=== PATIENT | female | born 1945 | race Caucasian/White ===

== ENCOUNTER 2019-01-02 06:21 | Outpatient (CLI) | payer MEDICARE ==
[~2019-01-02] VITALS: Ht 165.1 cm; Wt 72.1 kg
[2019-01-02] MEDS ORDERED: ASPI-586 PO (10:14)
[2019-01-02] MEDS ORDERED: HYDR12.56 PO (10:18)
[2019-01-02] MEDS ORDERED: ATOR20TA66 PO (10:18)
[2019-01-02] MEDS ORDERED: OXYB5TAB PO (10:18)
[2019-01-02] MEDS ORDERED: STEROID TOP (10:18)
[2019-01-02] MEDS ORDERED: CARV12.53 PO (10:18)
[2019-01-02] MEDS ORDERED: VENL75CA PO (10:18)
[2019-01-02] MEDS ORDERED: LEVO100T7 PO (10:18)
[2019-01-02] MEDS ORDERED: METF-399 PO (10:18)
[2019-01-02] MEDS ORDERED: MONT10TA24 PO (10:20)
[2019-01-02] MEDS ORDERED: LACT1CAP62 PO (10:24)
[2019-01-02] MEDS ORDERED: MAGN400T39 PO (10:24)
== END 2019-01-02 10:29 | disposition home or self-care (01) ==
LOC: PREOP 06:21
PROVIDERS: ATTEND Surgery
DX: Z01.818 Encounter for other preprocedural examination (principal)

== ENCOUNTER 2019-01-04 09:38 | Day surgery (SDC) | payer MEDICARE, OTHER ==
[~2019-01-04] VITALS: Ht 165.1 cm; Wt 72.1 kg
[~2019-01-04 09:38] MED LIST: ASPI-586 PO; ATOR20TA66 PO; CARV12.53 PO; HYDR12.56 PO; LACT1CAP62 PO; LEVO100T7 PO; MAGN400T39 PO; METF-399 PO; MONT10TA24 PO; OXYB5TAB PO; STEROID TOP; VENL75CA PO
[2019-01-04] MEDS ORDERED: NS IV 500 ML 500 ML IV PRN (09:54)
--- OUTSIDE RECORDS SUMMARY | 2019-01-04 09:57 | XMS REPORT ---
Author Jacoby Arriola [facility] eClinicalWorks Address Unknown Phone Unavailable Care Team Providers Care Addiction Specialist Name Role Phone Jacoby Chacon CP Unavailable Allergies, Adverse Reactions, Alerts Substance Reaction Event Type Sulfa unknown Non Drug Allergy Problems Problem Type Condition Code Onset Dates Condition Status Assessment Metabolic Syndrome 277.9 Active Assessment Chronic fatigue syndrome 780.71 Active Assessment Dyslipidemia 272.9 Active Problem Dyslipidemia 272.9 Active Problem Metabolic Syndrome 277.9 Active Problem Chronic fatigue syndrome 780.71 Active Problem Loss of height 781.91 Active Problem Palpitations 785.1 Active Problem Hypothyroidism (acquired) 244.9 Active Problem 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 Assessment Palpitations 785.1 Active Assessment Loss of height 781.91 Active Assessment HRT female V07.4 Active Assessment Pain - Joint; unspecified 719.40 Active Assessment Menopausal and postmenopausal disorder, unspecified 627.9 Active Assessment Hypothyroidism (acquired) 244.9 Active Medications Medication Code System Code Instructions Start Date End Date Status Dosage Aspirin Low Strength NDC 7555 81 mg orally once a day 1 tab(s) Vitamin C with Effie Hips NDC 8315 500 mg orally once a day 1 cap(s ) LEVATHROID NDC 0 0.1mg orally qd 1 Centrum Silver NDC 8497 Therapeutic Multiple Vitamins with Minerals orally once a day 1 tab(s) [place] Thyroid NDC 234 60 mg orally once a day 1/2 tab furosemide NDC 95198 20 mg orally 3 days a week May 18, 2007 1 tab(s ) calcium-vitamin D NDC 34094 250 mg-125 units orally TID 1 tab(s) Vivelle-Dot NDC 94649 0.1 mg/24 hours twice weekly applied topically 2X/W 1 PATCH Lipitor NDC 6419 20 mg orally once a day 1 tab(s) metformin NDC 02688 500 mg orally once daily 1 tab(s) Toprol-XL NDC 1187 100 mg orally once a day 1 tab(s) Gentex LA NDC 51610 650 mg-23.75 mg orally Q12H PRN 1 tab(s) Magnesium NDC 0 400mg oral qd cap Sleep Essentials NDC 0 orally qd 1 Effexor XR NDC 12848 75 mg orally once a day 1 cap(s) vitamin E NDC 80523 1000 intl units orally once a day 1 cap(s) ibuprofen NDC 57714 200 mg orally qd Prn up to 6 vitamin B complex w/c NDC 0 1600 1 qd as directed Procedures Procedure Coding System Code Date ANTIB; PRUDENCE-CHRISTOPHER NUCLEAR AProc. CPT-4 91419 April 25, 2008 ANTIB; PRUDENCE-CHRISTOPHER VIRAL CAPProc. CPT-4 68599 April 25, 2008 ANTIB; PRUDENCE-CHRISTOPHER EARLY ANTProc. CPT-4 67007 April 25, 2008 TRIGLYCERIDES Proc. CPT-4 80089 April 25, 2008 EKG CPT-4 53996 April 25, 2008 CYTOMEG, DNA, QUANT CPT-4 90964 April 25, 2008 Vitamin D-3 25 [place] CPT-4 95745 April 25, 2008 DEHYDROEPIANDROETERONE Proc. CPT-4 23070 April 25, 2008 ESTROGENS TOTAL Proc. CPT-4 00602 April 25, 2008 DEXA BONE DENSITY, AXIAL CPT-4 36992 April 25, 2008 ASSAY PF ESTRADIOL Proc. CPT-4 48685 April 25, 2008 PROGESTRONE ASSAY Proc. CPT-4 64548 April 25, 2008 LIPOPROTEIN BLD, HR FRACTION CPT-4 70346 April 25, 2008 GENERAL HEALTH PANEL Proc. CPT-4 83297 April 25, 2008 TRIIODOTHYRONINE T3; FREE Proc. CPT-4 34047 April 25, 2008 OFC/OUTPT E&M ESTAB MOD-HI 25Proc. CPT-4 91446 April 25, 2008 THYROXINE; FREE Proc. CPT-4 06474 April 25, 2008 venipuncture VENOUS BLD VENIPProc. CPT-4 00012 April 25, 2008 Vital Signs Date/Time: April 25, 2008 Temperature 96.8 F Weight 172.2 lbs Height 62 in Respiratory Rate 16 /min Pulse 80 /min Blood Pressure Diastolic 72 mm Hg Blood Pressure Systolic 122 mm Hg BMI 31.49 Index Results No Known Results Summary Purpose eClinicalWorks Submission
--- OUTSIDE RECORDS SUMMARY | 2019-01-04 09:57 | XMS REPORT ---
Author Jacoby Arriola [facility] eClinicalWorks Address Unknown Phone Unavailable Care Team Providers Care Power System Dispatcher Name Role Phone Jacoby Chacon CP Unavailable Allergies, Adverse Reactions, Alerts Substance Reaction Event Type Sulfa unknown Non Drug Allergy Problems Problem Type Condition Code Onset Dates Condition Status Assessment Skin Lesion (unspecified) 709.9 Active Assessment Hyperkeratosis 701.1 Active Problem Dyslipidemia 272.9 Active Problem Metabolic Syndrome 277.9 Active Problem Chronic fatigue syndrome 780.71 Active Problem Loss of height 781.91 Active Problem Palpitations 785.1 Active Problem Hypothyroidism (acquired) 244.9 Active Problem 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 Medications Medication Code System Code Instructions Start Date End Date Status Dosage [place] / NDC 0 Fish 800/Flax 800 Barbra.PrimroseBlk Current Borage Oil/ 400mg orally Q AM 1 cap LEVATHROID NDC 0 0.088 mg orally qd 1 Magnesium NDC 0 400mg oral qd cap Toprol-XL NDC 1187 100 mg orally once a day 1 tab(s) L-Tyrosine NDC 0 500 mg orally Q AM 1 Vitamin C with Effie Hips NDC 8315 500 mg orally once a day 1 cap(s ) Vivelle-Dot NDC 82334 0.1 mg/24 hours twice weekly applied topically 2X/W April 22, 2009 1 PATCH potassium NDC 0 90mg orally qd 2 furosemide NDC 55883 20 mg orally 3 days a week May 18, 2007 1 tab(s ) vitamin B complex w/c NDC 0 1600 1 qd as directed Centrum Silver NDC 8497 Therapeutic Multiple Vitamins with Minerals orally once a day 1 tab(s) vitamin E NDC 14144 1000 intl units orally once a day 1 cap(s) Aspirin Low Strength NDC 7555 81 mg orally once a day 1 tab(s) Lipitor NDC 6419 20 mg orally once a day 1 tab(s) metformin NDC 99401 500 mg orally once daily 1 tab(s) ibuprofen NDC 43896 200 mg orally qd Prn up to 6 Sleep Essentials NDC 0 orally qd 1 Effexor XR NDC 29772 75 mg orally once a day 1 cap(s) [place] Thyroid NDC 234 60 mg orally once a day 1/2 tab calcium-vitamin D NDC 48475 250 mg-125 units orally TID 1 tab(s) Procedures Procedure Coding System Code Date SHAVE F,E,E,N,L,M <0.5 CM CPT-4 68588 Aug 11, 2010 SHAV 1 LES TRNK ARM/LEG;0.5 CProc. CPT-4 82810 Aug 11, 2010 Vital Signs Date/Time: Aug 11, 2010 Temperature 96.8 F Weight 181 lbs Height 64 1/2 in Respiratory Rate 14 /min Pulse 80 /min Blood Pressure Diastolic 70 mm Hg Blood Pressure Systolic 108 mm Hg BMI 30.59 Index Results No Known Results Summary Purpose eClinicalWorks Submission
--- OUTSIDE RECORDS SUMMARY | 2019-01-04 09:57 | XMS REPORT ---
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 Problem Menopausal and postmenopausal disorder, unspecified 627.9 Active Problem Dyslipidemia 272.9 Active Problem Metabolic Syndrome 277.9 Active Problem Actinic keratosis 702.0 Active Problem Chronic fatigue syndrome 780.71 Active Assessment Zostavax vaccination (shingles) V05.8 Active Assessment Skin Lesion (unspecified) 709.9 Active Assessment Keratosis Seborrheic inflammed 702.11 Active Problem Palpitations 785.1 Active Medications Medication Code System Code Instructions Start Date End Date Status Dosage Aspirin Low Strength NDC 7555 81 mg orally once a day 1 tab(s) Toprol-XL NDC 1187 100 mg orally once a day February 08, 2012 1 tab(s) Vivelle-Dot NDC 06479 0.1 mg/24 hours twice weekly applied topically 2X/W April 22, 2009 1 PATCH Co-Q10 NDC 74505 200 mg orally once a day 200 mg [place] Thyroid NDC 234 60 mg orally once a day February 08, 2012 1 tab( s) vitamin E NDC 49779 1000 intl units orally once a day 1 cap(s) Centrum NDC 8493 Therapeutic Multiple Vitamins with Minerals orally once a day 1 tab(s) Magnesium NDC 0 400mg oral qd cap Lipitor NDC 6419 20 mg orally once a day 1 tab(s) Synthroid NDC 2205 88 mcg (0.088 mg) orally once a day 1 tab(s) furosemide NDC 53624 20 mg orally 3 days a week February 08, 2012 1 tab (s) Vitamin C with Effie Hips NDC 8315 1000 mg orally once a day 1 cap( s) oxybutynin NDC 24684 10 mg orally once a day Sep 01, 2011 1 tab(s) vitamin B complex w/c NDC 0 2000 IU 1 qd as directed Detrol LA NDC 58688 4 mg orally once a day 1 cap(s) Zostavax NDC 0 0.65 ml SC X 1 Aug 08, 2012 0.65 ml metformin NDC 15853 1000 mg orally once daily February 08, 2012 1 tab(s ) ibuprofen NDC 93118 200 mg orally qd Prn up to 6 Effexor XR NDC 39739 75 mg orally once a day 1 cap(s) Vitamin D3 NDC 4871 1000 intl units orally once a day 1 tab(s) Vitamin A NDC 0 8000 IU oral once a day 1 tab calcium-vitamin D NDC 52407 250 mg-125 units orally TID 1 tab(s) Procedures Procedure Coding System Code Date Dest of wart/benign lesion up to 14 CPT-4 81825 Aug 08, 2012 Vital Signs Date/Time: Aug 08, 2012 Temperature 96.0 F Weight 182.8 lbs Height 64 1/2 in Respiratory Rate 16 /min Pulse 72 /min Blood Pressure Diastolic 82 mm Hg Blood Pressure Systolic 126 mm Hg BMI 30.89 Index Results No Known Results Summary Purpose eClinicalWorks Submission
--- OUTSIDE RECORDS SUMMARY | 2019-01-04 09:58 | XMS REPORT ---
Author Jodi Fowler [facility] eClinicalWorks Address Unknown Phone Unavailable Care Team Providers Care Lithographic Retoucher Apprentice Name Role Phone Jodi Burgos Unavailable Allergies No Known Allergies Problems Problem Type Condition Code Onset Dates Condition Status Assessment FLU VACCINATION V04.81 Active Medications Medication Code System Code Instructions Start Date End Date Status Dosage Toprol XL NDC 1187 50 mg orally once a day 1 tab(s) Zaroxolyn NDC 1440 2.5 mg orally once a day 1 tab(s) Effexor XR NDC 61225 150 mg orally once a day 1 cap(s) Levothroid NDC 1840 500 mcg (0.5 mg) intravenously once a day 0.1 mg Vivelle-Dot NDC 19306 0.1 mg/24 hours twice weekly applied topically 2X/W 1 PATCH Lipitor NDC 6419 20 mg orally once a day 1 tab(s) Guaifenex LA NDC 2481 600 mg orally Q12H 1 tab(s) Procedures Procedure Coding System Code Date [facility] Adult CPT-4 66673 Sep 16, 2006 IMMUNIZATION ADMIN; 1 VACCINEProc. CPT-4 32595 Sep 16, 2006 Vital Signs Date/Time: Sep 16, 2006 Temperature 97.2 F Weight 166 lbs Height 62 in BMI 30.36 Index Respiratory Rate 14 /min Results No Known Results Immunizations Vaccine Administration Date [facility] Adult Sep 16, 2006 Summary Purpose eClinicalWorks Submission
--- OUTSIDE RECORDS SUMMARY | 2019-01-04 09:58 | XMS REPORT ---
Author Jodi Fowler [facility] eClinicalWorks Address Unknown Phone Unavailable Care Team Providers Care Lawyers Name Role Phone Jodi Burgos CP Unavailable Allergies, Adverse Reactions, Alerts Substance Reaction Event Type Sulfa unknown Non Drug Allergy Problems Problem Type Condition Code Onset Dates Condition Status Assessment NADINE (Seasonal Allergic Rhinitis) 477.8 Active Problem Loss of height 781.91 Active Problem Palpitations 785.1 Active Assessment Sinusitis 473.9 Active Problem Actinic keratosis 702.0 Active Problem Chronic fatigue syndrome 780.71 Active 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 Problem Hypothyroidism (acquired) 244.9 Active Problem 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 Problem Dyslipidemia 272.9 Active Problem Metabolic Syndrome 277.9 Active Medications Medication Code System Code Instructions Start Date End Date Status Dosage Vivelle-Dot [place]DC 21767 0.1 mg/24 hours twice weekly applied topically 2X/W April 22, 2009 1 PATCH furosemide NDC 68379 20 mg orally 3 days a week May 18, 2007 1 tab(s ) Toprol XL NDC 1187 100 mg orally once a day 1 tab(s) [place] Thyroid NDC 234 60 mg orally once a day 1/2 tab Vitamin C with Effie Hips NDC 8315 1000 mg orally once a day 1 cap( s) Synthroid NDC 2205 88 mcg (0.088 mg) orally once a day 1 tab(s) vitamin B complex w/c NDC 0 2000 IU 1 qd as directed Lipitor NDC 6419 20 mg orally once a day 1 tab(s) Levaquin NDC 6466 500 mg orally every 24 hours Jul 09, 2011 1 tab(s ) Detrol LA NDC 41212 4 mg orally once a day 1 cap(s) vitamin E NDC 81734 1000 intl units orally once a day 1 cap(s) Vitamin A NDC 0 8000 IU oral once a day 1 tab Co-Q10 NDC 46320 200 mg orally once a day 200 mg [place] 3/6/9/ NDC 0 Fish 800/Flax 800 Barbra.PrimroseBlk Current Borage Oil/ 400mg orally Q AM 1 cap Centrum NDC 8493 Therapeutic Multiple Vitamins with Minerals orally once a day 1 tab(s) Effexor XR NDC 83273 75 mg orally once a day 1 cap(s) metformin NDC 79437 500 mg orally once daily 1 tab(s) calcium and vitamin D combination NDC 07431 250 mg-125 units orally TID 1 tab(s) Vitamin D3 NDC 4871 2000 intl units orally once a day 1 tab(s) Aspirin Low Strength NDC 7555 81 mg orally once a day 1 tab(s) Magnesium NDC 0 400mg oral qd cap ibuprofen NDC 26490 200 mg orally qd Prn up to 6 Procedures Procedure Coding System Code Date Depo Medrol 40mg CPT-4 J1030 Jul 09, 2011 Dexamethasone 4mg/ml CPT-4 J1094 Jul 09, 2011 OFC/OUTPT E&M ESTAB LOW-MOD 1Proc. CPT-4 58731 Jul 09, 2011 Vital Signs Date/Time: Jul 09, 2011 Blood Pressure Systolic 120 mm Hg Temperature 97.6 F Weight 182 lbs Respiratory Rate 14 /min Pulse 62 /min Blood Pressure Diastolic 76 mm Hg Results No Known Results Summary Purpose eClinicalWorks Submission
--- OUTSIDE RECORDS SUMMARY | 2019-01-04 09:58 | XMS REPORT ---
Author Jacoby Arriola [facility] eClinicalWorks Address Unknown Phone Unavailable Care Team Providers Care Light Out Examiner Name Role Phone Jacoby Chacon CP Unavailable Allergies, Adverse Reactions, Alerts Substance Reaction Event Type Sulfa unknown Non Drug Allergy Problems Problem Type Condition Code Onset Dates Condition Status Assessment Tinnitus NOS 388.30 Active Assessment Metatarsalgia 726.70 Active Assessment Palpitations 785.1 Active Problem Dyslipidemia 272.9 Active Problem Metabolic Syndrome 277.9 Active Problem Chronic fatigue syndrome 780.71 Active Problem Loss of height 781.91 Active Problem Palpitations 785.1 Active Problem Hypothyroidism (acquired) 244.9 Active Problem 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 Medications Medication Code System Code Instructions Start Date End Date Status Dosage Toprol-XL NDC 1187 100 mg orally once a day 1 tab(s) metformin NDC 72251 500 mg orally once daily 1 tab(s) Effexor XR NDC 34986 75 mg orally once a day 1 cap(s) [place] Thyroid NDC 234 60 mg orally once a day 1/2 tab Sleep Essentials NDC 0 orally qd 1 vitamin E NDC 90991 1000 intl units orally once a day 1 cap(s) LEVATHROID NDC 0 0.088 mg orally qd 1 vitamin B complex w/c NDC 0 1600 1 qd as directed Aspirin Low Strength NDC 7555 81 mg orally once a day 1 tab(s) L-Tyrosine NDC 0 500 mg orally Q AM 1 potassium NDC 0 90mg orally qd 2 Vitamin C with Effie Hips NDC 8315 500 mg orally once a day 1 cap(s ) Centrum Silver NDC 8497 Therapeutic Multiple Vitamins with Minerals orally once a day 1 tab(s) Lipitor NDC 6419 20 mg orally once a day 1 tab(s) Vivelle-Dot NDC 08020 0.1 mg/24 hours twice weekly applied topically 2X/W April 22, 2009 1 PATCH calcium-vitamin D NDC 40443 250 mg-125 units orally TID 1 tab(s) [place] 3/6/9/ NDC 0 Fish 800/Flax 800 Barbra.PrimroseBlk Current Borage Oil/ 400mg orally Q AM 1 cap furosemide NDC 90903 20 mg orally 3 days a week May 18, 2007 1 tab(s ) Magnesium NDC 0 400mg oral qd cap ibuprofen NDC 84713 200 mg orally qd Prn up to 6 Procedures Procedure Coding System Code Date RAD EX FOOT; CMPL MINI 3 VIEWProc. CPT-4 95379 January 02, 2010 OFC/OUTPT E&M ESTAB LOW-MOD 1Proc. CPT-4 15057 January 02, 2010 Vital Signs Date/Time: January 02, 2010 Temperature 96.5 F Weight 184.6 lbs Height 62 in Respiratory Rate 14 /min Pulse 76 /min Blood Pressure Diastolic 72 mm Hg Blood Pressure Systolic 108 mm Hg BMI 33.76 Index Results No Known Results Summary Purpose eClinicalWorks Submission
--- OUTSIDE RECORDS SUMMARY | 2019-01-04 09:58 | XMS REPORT ---
Author Jacoby Arriola [facility] eClinicalWorks Address Unknown Phone Unavailable Care Team Providers Care General Cargo Clerk Name Role Phone Jacoby Chacon CP Unavailable Allergies, Adverse Reactions, Alerts Substance Reaction Event Type Sulfa unknown Non Drug Allergy Problems Problem Type Condition Code Onset Dates Condition Status Assessment Skin tag(s) 701.9 Active Assessment Skin Lesion (unspecified) 709.9 Active Assessment Seborrheic keratosis inflammed 702.11 Active Problem Dyslipidemia 272.9 Active Problem Metabolic Syndrome 277.9 Active Problem Chronic fatigue syndrome 780.71 Active Problem Loss of height 781.91 Active Problem Palpitations 785.1 Active Problem Hypothyroidism (acquired) 244.9 Active Problem 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 Medications Medication Code System Code Instructions Start Date End Date Status Dosage Centrum Silver NDC 8497 Therapeutic Multiple Vitamins with Minerals orally once a day 1 tab(s) fish oil NDC 0 1000mg orally qd 1 Flax Seed Oil NDC 0 1300 mg orally qd 1 metformin NDC 88354 500 mg orally once daily 1 tab(s) Lipitor NDC 6419 20 mg orally once a day 1 tab(s) Vitamin C with Effie Hips NDC 8315 500 mg orally once a day 1 cap(s ) [place] Thyroid NDC 234 60 mg orally once a day 1/2 tab [place] NDC 0 410 mg Orally QD 1 ibuprofen NDC 45818 200 mg orally qd Prn up to 6 Vivelle-Dot NDC 67994 0.1 mg/24 hours twice weekly applied topically 2X/W 1 PATCH Aspirin Low Strength NDC 7555 81 mg orally once a day 1 tab(s) vitamin E NDC 52041 1000 intl units orally once a day 1 cap(s) Gentex LA NDC 59593 650 mg-23.75 mg orally Q12H PRN 1 tab(s) Magnesium NDC 0 400mg oral qd cap Sleep Essentials NDC 0 orally qd 1 vitamin B complex w/c NDC 0 1600 1 qd as directed furosemide NDC 49634 20 mg orally 3 days a week May 18, 2007 1 tab(s ) calcium-vitamin D NDC 34991 250 mg-125 units orally TID 1 tab(s) Toprol-XL NDC 1187 100 mg orally once a day 1 tab(s) Effexor XR NDC 16484 75 mg orally once a day 1 cap(s) LEVATHROID NDC 0 0.1mg orally qd 1 Procedures Procedure Coding System Code Date Dest of wart/benign lesion up to 14 CPT-4 42360 Jun 29, 2008 Vital Signs Date/Time: Jun 29, 2008 Temperature 97.4 F Weight 179.4 lbs Height 62 in Respiratory Rate 16 /min Pulse 78 /min Blood Pressure Diastolic 74 mm Hg Blood Pressure Systolic 126 mm Hg BMI 32.81 Index Results No Known Results Summary Purpose eClinicalWorks Submission
[2019-01-04] MEDS ORDERED: LIDOCAINE JELLY 2% 6 ML SYRINGE MM PRN (10:00)
[2019-01-04] MEDS ORDERED: MIDAZOLAM 2 MG/2 ML (VERSED) VIAL IVP ONE (10:00)
[2019-01-04] MEDS ORDERED: fentaNYL INJECTION 100 MCG/2 ML AMP IVP ONE (10:00)
[2019-01-04] MEDS ORDERED: NS IV 500 ML 500 ML ONE (10:01)
[2019-01-04 10:26] VITALS: BP 124/69
--- NOTE | 2019-01-04 10:36 | Conscious Sedation/ASA ---
Conscious Sedation Pre-Proced Time 10:30 ASA Score 2 For ASA 3 and 4: Consider anesthesia and medical clearance. Also, for patients with a history of failed moderate sedation consider anesthesia. Airway Lungs Heart ASA score ASA 1: a normal healthy patient ASA 2: a patient with a mild systemic disease (mid diabetes, controlled hypertension, obesity ASA 3: a patient with a severe systemic disease that limits activity (angina , COPD, prior Myocardial infarction) ASA 4: a patient with an incapacitating disease that is a constant threat to life (CHF, renal failure) ASA 5: a moribund patient not expected to survive 24 hrs. (ruptured aneurysm) ASA 6: a declared brain- patient whose organs are being harvested. For emergent operations, add the letter E after the classification Mallampati Classification Grade 2 Sedation Plan Analgesia, Amnesia, Plan communicated to team members, Discussed options with patient/fam, Discussed risks with patient/fam The patient is an appropriate candidate to undergo the planned procedure, sedation, and anesthesia. The patient immediately re-assessed prior to indication. GERTRUDE TUCKER MD Jan 04, 2019 10:36
--- NOTE | 2019-01-04 10:37 | Progress Note-Pre Operative ---
Pre-Operative Progress Note H&P Reviewed The H&P was reviewed, patient examined and no changes noted. Date Seen by Provider: Jan 04, 2019 Time Seen by Provider: 10: Date H&P Reviewed: Jan 04, 2019 Time H&P Reviewed: 10:30 Pre-Operative Diagnosis: screening colonoscopy GERTRUDE TUCKER MD Jan 04, 2019 10:37
--- NOTE | 2019-01-04 10:39 | Discharge Inst-Surgical ---
D/C Lap Instructions-GARRETT Follow Up Activity as tolerated High Fiber Diet 25g or more per day Avoid Alcohol, Caffeine, Spicy [place] and Acid foods. Drink 64 fluid oz or more of fluids per day. Symptoms to Report: Fever over 101 degree F, Nausea/Vomiting If any problems/questions: Contact your physician or go to Emergency Room GERTRUDE TUKCER MD Jan 04, 2019 10:38
[2019-01-04] MEDS ORDERED: morphine INJ 10 MG/ML 1ML (SYR OR VIAL) IV PRN (10:45)
[2019-01-04] MEDS ORDERED: HYDROcodone/APAP 5 MG/325 MG (LORTAB) TAB PO PRN (10:45)
[2019-01-04] MEDS ORDERED: ONDANSETRON 4 MG/2 ML (SDV) Z0FRAN IV PRN (10:45)
[2019-01-04] MEDS ORDERED: ACETAMINOPHEN 325 MG TABLET PO PRN (10:45)
[2019-01-04] MEDS ORDERED: fentaNYL INJECTION 100 MCG/2 ML AMP ONE (10:47)
[2019-01-04] MEDS ORDERED: MIDAZOLAM 2 MG/2 ML (VERSED) VIAL ONE ×3 (10:47)
[2019-01-04] MEDS ORDERED: LIDOCAINE JELLY 2% 6 ML SYRINGE ONE (10:47)
[2019-01-04 12:10] VITALS: BP 130/63
--- NOTE | 2019-01-04 12:21 | OPERATIVE REPORT ---
DATE OF SERVICE: 01/04/2019 ATTENDING PRIMARY CARE PHYSICIAN: Dr. Sosa. PREOPERATIVE DIAGNOSIS: Screening colonoscopy. POSTOPERATIVE DIAGNOSIS: Mild stage I chronic external and internal hemorrhoids. Remainder of the colon and rectum were normal. PROCEDURE: Colonoscopy. SURGEON: Gertrude Tucker MD ANESTHESIA: Conscious sedation. ESTIMATED BLOOD LOSS: Minimal. FINDINGS: Mild chronic stage I external and internal hemorrhoids. The remainder of the rectum and colon were normal. There were no polyps or any neoplasms identified. DISPOSITION: The patient tolerated the procedure well. The patient is a 73-year-old female in need of a screening colonoscopy. Her last colonoscopy in 2005 and reports this to be normal. She states that she has had some constipation in the past; however, does take magnesium daily as well as a probiotic and states that this has helped and she does have a relatively soft bowel movement on a daily basis. She does not report any red blood per rectum nor any dark tarry stools. She also does not report any family history of first degree relative with a history of colon cancer. Her mother was diagnosed with ovarian cancer. The patient was brought to the endoscopy suite, laid in left lateral decubitus position. After adequate IV pain and sedative medications and conscious sedation anesthesia, a digital rectal examination was performed. Mild chronic stage I external and internal hemorrhoids were identified, which were not actively edematous nor inflamed and no bleeding. Normal sphincter tone was felt and there are no palpable masses. The endoscope was then intubated to the anus and rectum gently insufflated. The endoscope was then advanced to the valves of Lewis and rectum with no polyps or any neoplasms identified. The endoscope was then advanced through the sigmoid colon where there were no diverticulosis. The endoscope was then advanced to the remainder of the descending, transverse and ascending colon to the cecum. These segments were normal. There were no polyps or any neoplasms identified throughout the colon or rectum. The endoscope was slowly withdrawn while taking a second look and suctioning residual air with no additional findings. ASSESSMENT AND PLAN: The patient tolerated the procedure well. We will recommend continued medical management with incorporation of high fiber with at least 25 to 30 grams of fiber per day as well as significant amounts of water on a daily basis to promote soft bowel movement on a daily basis. She may wait another 10 years for her next colonoscopy, however, sooner if she becomes symptomatic. Job ID: [id number] DocumentID: [id number] Dictated Date: 01/04/2019 11:54:49 Retail Event Assistant Date: 01/04/2019 12:20:36 Dictated By: GERTRUDE TUCKER MD
[2019-01-04 12:30] VITALS: BP 140/73
[2019-01-04 13:00] VITALS: BP 140/73
--- NOTE | 2019-01-04 14:09 | Progress Note-Post Operative ---
Post-Operative Progess Note Surgeon (s)/Divine Healer (s) Surgeon GERTRUDE TUCKER MD Divine Healer: none Pre-Operative Diagnosis screening colonoscopy Post-Operative Diagnosis chronic stage 2 ext and int hemorrhoids. Procedure & Operative Findings Date of Procedure 01/04/19 Procedure Performed/Findings Colonoscopy Anesthesia Type cs Estimated Blood Loss Estimated blood loss (mL): minimal Specimens/Packing Specimens Removed none GERTRUDE TUCKER MD Jan 04, 2019 14:09
== END 2019-01-04 13:15 | disposition home or self-care (01) ==
LOC: ENDO 09:38
PROVIDERS: ATTEND Surgery
DX: Z12.11 Encounter for screening for malignant neoplasm of colon (principal); K64.1 Second degree hemorrhoids; E03.9 Hypothyroidism, unspecified; F32.9 Major depressive disorder, single episode, unspecified; E78.00 Pure hypercholesterolemia, unspecified; I10 Essential (primary) hypertension; R00.2 Palpitations; M32.9 Systemic lupus erythematosus, unspecified; Z79.899 Other long term (current) drug therapy; Z79.82 Long term (current) use of aspirin; Z87.891 Personal history of nicotine dependence; Z80.41 Family history of malignant neoplasm of ovary; Z80.1 Family history of malignant neoplasm of trachea, bronchus and lung; Z80.3 Family history of malignant neoplasm of breast; Z80.0 Family history of malignant neoplasm of digestive organs

== ENCOUNTER → 2021-03-11 | Outpatient (CLI) | payer MEDICARE, OTHER ==
[~2021-03-11] MED LIST changes: -MONT10TA24 PO; +MONT10TA32 PO; +OXYB-52 PO; -OXYB5TAB PO
--- NOTE | 2021-03-11 15:21 | Diagnostic Imaging Report ---
INDICATION: Postmenopausal screening COMPARISON: Baseline FINDINGS: AP Spine L1-L4: [BMD (g/cm2): 1.135] [T-Score: -0.5] [Z-Score: 1.2] [BMD Previous: na] [BMD % Change: na] LT Hip Neck: [BMD (g/cm2): 1.057] [T-Score: 0.1] [Z-Score: 2.0] LT Hip Total: [BMD (g/cm2):1.123] [T-Score:0.9] [Z-Score: 2.6] [BMD Previous: na] [BMD % Change: na] RT Hip Neck: [BMD (g/cm2):1.023] [T-Score:-0.1] [Z-Score:1.8] RT Hip Total: [BMD (g/cm2):1.028] [T-score:0.2] [Z-Score:1.9] [BMD Previous:na] [BMD % Change:na] *Indicates significant change from prior examination based on 95% confidence level. World Health Organization criteria for BMD interpretation classify patients as Normal (T-score at or above -1.0), Osteopenic (T-score between -1.0 and -2.5) or Osteoporotic (T-score at or below -2.5). LIMITATIONS AND MODIFICATION: None. FRACTURE RISK (FRAX SCORE): The ten year probability of (%): Major Osteoporotic Fracture: [na] Hip Fracture: [na] IMPRESSION: 1. Normal bone mineral density. 2. Baseline examination. 3. See below National Osteoporosis Foundation guidelines on when to potentially initiate pharmacologic therapy. Based on the National Osteoporosis Foundation Guidelines, pharmacologic treatment should be initiated in any of the following, unless clinical conditions suggest otherwise: * Any patient with prior fragility fracture of the hip or vertebrae. A spine fracture indicates 5X risk for subsequent spine fracture and 2X risk for subsequent hip fracture. * Osteoporosis (T-score <-2.5). * Postmenopausal women and men age 50 and older with low bone mass/osteopenia (T-score between -1.0 and -2.5) by DXA and 10-year major osteoporotic fracture greater than 20% or a 10-year probability of hip fracture greater than 3%. These fracture risks are supplied above in the FRAX score, if applicable. * Clinician judgement and/or patient preferences may indicate treatment for people with 10-year fracture probabilities above or below these levels. Dictated by: Dictated on workstation # [id number]
== END ==
LOC: RAD 10:59
PROVIDERS: ATTEND Emergency Medicine
DX: Z78.0 Asymptomatic menopausal state (principal)
CPT/HCPCS: 77080

== ENCOUNTER → 2021-04-23 | Outpatient (CLI) | payer MEDICARE, OTHER ==
--- NOTE | 2021-04-23 14:08 | Diagnostic Imaging Report ---
PROCEDURE: MRI lumbar spine without contrast. TECHNIQUE: Multiplanar, multisequence MRI of the lumbar spine was performed without contrast. INDICATION: Low back pain. COMPARISON: None. FINDINGS: 5 lumbar type vertebral bodies are visualized with the last well-formed disc space designated L5-S1. No acute fracture or dislocation is seen in the lumbar spine. There is grade 1 retrolisthesis of L1 on L2 and grade 1 anterolisthesis of L4 on L5. Modic type I endplate degenerative changes are present at the L1-L2 level. No suspicious focal osseous lesions are seen. The conus terminates at the L1 level. No masses are seen associated with the conus or nerve roots of the cauda equina. No epidural collections are identified. Multilevel degenerative changes are seen in the lumbar spine with disc bulges, facet hypertrophy, and buckling of the ligamentum flavum. T12-L1: Facet hypertrophy and buckling of the ligamentum flavum results in mild spinal canal narrowing and no significant foraminal narrowing. L1-L2: Broad-based disc bulge, facet hypertrophy, and buckling of the ligamentum flavum results in mild spinal canal narrowing and moderate bilateral foraminal stenosis. L2-L3: Facet hypertrophy and buckling of the ligamentum flavum results in elcb-td-mezmaumn spinal canal narrowing and mild bilateral foraminal narrowing. L3-L4: Broad-based disc bulge, facet hypertrophy, and buckling of the ligamentum flavum results in severe spinal canal stenosis and moderate right and xnagfrho-gk-cxadkw left foraminal stenosis. L4-L5: Broad-based disc bulge, facet hypertrophy, and buckling of the ligamentum flavum results in severe spinal canal stenosis and slgqotdx-gc-npntpt right and aygd-qw-dppcgasr left foraminal stenosis. L5-S1: Broad-based disc bulge, facet hypertrophy, and buckling of the ligamentum flavum results in mild spinal canal narrowing and mild bilateral foraminal narrowing. Paravertebral soft tissues are unremarkable. IMPRESSION: 1. No acute fracture or dislocation in the lumbar spine. 2. Multilevel degenerative changes in the lumbar spine, greatest at L3-L4 and L4-L5. 3. Grade 1 retrolisthesis of L1 on L2 and grade 1 anterolisthesis of L4 on L5. 4. Modic type I endplate degenerative changes at the L1-L2 level. Dictated by: Dictated on workstation # [id number]
== END ==
LOC: RAD 12:56
PROVIDERS: ATTEND Physician Assistant
DX: M47.816 Spondylosis without myelopathy or radiculopathy, lumbar region (principal); M43.17 Spondylolisthesis, lumbosacral region
CPT/HCPCS: 72148

== ENCOUNTER → 2021-07-11 | Outpatient (CLI) | payer MEDICARE, OTHER | LOC: LAB FS 10:10 | PROVIDERS: ATTEND Orthopaedic Surgery | DX: Z01.812 Encounter for preprocedural laboratory examination (principal); Z20.822 Contact with and (suspected) exposure to COVID-19 | CPT/HCPCS: 87635 ==

== ENCOUNTER 2022-12-31 11:16 | Emergency (ER) | payer MEDICARE, OTHER ==
[~2022-12-31] VITALS: Ht 165 cm; Wt 62.0 kg
[~2022-12-31 11:16] MED LIST changes: +MONT-40 PO; -MONT10TA32 PO
--- NOTE | 2022-12-31 11:25 | ED Cough/URI ---
General Chief Complaint: Cough/Cold/Flu Symptoms Stated Complaint: COUGH; CHEST CONGESTION History of Present Illness Date Seen by Provider: Dec 31, 2022 Time Seen by Provider: 11:21 Initial Comments 77-year-old female presents with cough, chest congestion is been going on for about 4 days. She reports prior to that she had sore throat, headache, generalized malaise for couple days. No reports of any fevers. No shortness of breath Allergies and Home Medications Allergies Coded Allergies: Sulfa (Sulfonamide Antibiotics) (Verified Allergy, Unknown, CHILDHOOD ALLERGY, 01/02/19) Patient Home Medication List Home Medication List Reviewed: Yes Aspirin (Aspir 81) 81 Mg Tablet.dr, 81 MG PO DAILY, (Reported) Entered as Reported by: DIANA WHITTEN on 01/02/19 1014 Atorvastatin Calcium (Atorvastatin Calcium) 20 Mg Tablet, 20 MG PO HS, (Reported) Entered as Reported by: DIANA WHITTEN on 01/02/19 1018 Benzonatate (Tessalon Perles) 100 Mg Capsule, 100 MG PO TID Prescribed by: ABRIL WHITEHEAD on 12/31/22 1153 Carvedilol (Carvedilol) 12.5 Mg Tablet, 50 MG PO HS, (Reported) Entered as Reported by: DIANA WHITTEN on 01/02/19 1018 Hydrochlorothiazide (Hydrochlorothiazide) 12.5 Mg Tablet, 12.5 MG PO DAILY, (Reported) Entered as Reported by: DIANA WHITTEN on 01/02/19 1018 Lactobacillus Acidophilus (Probiotic) 1 Each Capsule, 1 EACH PO HS, (Reported) Entered as Reported by: DIANA WHITTEN on 01/02/19 1024 Levothyroxine Sodium (Levothyroxine Sodium) 100 Mcg Tablet, 100 MCG PO DAILY, (Reported) Entered as Reported by: DIANA WHITTEN on 01/02/19 1018 Magnesium Oxide (Magnesium) 400 Mg Tablet, 400 MG PO DAILY, (Reported) Entered as Reported by: DIANA WHITTEN on 01/02/19 1024 Metformin HCl (Metformin HCl) 1,000 Mg Tablet, 1,000 MG PO DAILY, (Reported) Entered as Reported by: DIANA WHITTEN on 01/02/19 1018 Montelukast Sodium (Montelukast Sodium) 10 Mg Tablet, 10 MG PO DAILY, (Reported) Entered as Reported by: DIANA WHITTEN on 01/02/19 1020 Oxybutynin Chloride (Oxybutynin Chloride ER) 5 Mg Tab.er.24, 5 MG PO DAILY, (Reported) Entered as Reported by: DIANA WHITTEN on 01/02/19 1018 Venlafaxine HCl (Effexor Xr) 75 Mg Cap.er.24h, 75 MG PO DAILY, (Reported) Entered as Reported by: DIANA WHITTEN on 01/02/19 1018 [Steroid Patch] , 0.1 MG TOP MONTHLY, (Reported) Entered as Reported by: DIANA WHITTEN on 01/02/19 1018 Review of Systems Review of Systems Constitutional: No chills, No fever; malaise Respiratory: cough; No short of breath, No wheezing Cardiovascular: No chest pain, No palpitations Gastrointestinal: No nausea, No vomiting Genitourinary: no symptoms reported Musculoskeletal: no symptoms reported Skin: no symptoms reported Psychiatric/Neurological: No Symptoms Reported Past Vjahrds-Dmrjkb-Gbqpgv Hx Seasonal Allergies Seasonal Allergies: Yes Past Medical History Surgeries: Yes (FOOT, ) Hysterectomy, Oophorectomy, Tonsillectomy Respiratory: No Cardiac: Yes High Cholesterol, Hypertension, Irregular Heartbeat, Palpitations Neurological: No (LUPUS, HX LYME DISEASE, HX CHRONIC FATIGUE) Sexually Transmitted Disease: No HIV/AIDS: No Genitourinary: No Gastrointestinal: Yes Chronic Constipation Musculoskeletal: Yes (BULGING DISC) Arthritis, Chronic Back Pain Endocrine: Yes (PRE-DIABETIC) Hypothyroidsim, Diabetes, Non-Insulin dep HEENT: No Loss of Vision: Denies Hearing Impairment: Denies Cancer: No Psychosocial: Yes Depression Integumentary: No Blood Disorders: No (HX ANEMIA) Adverse Reaction/Blood Tranf: No (N/A) Physical Exam Vital Signs - First Documented 12/31/22 11:24 Temp 36.3 Pulse 78 Resp 16 B/P (MAP) 125/65 (85) Pulse Ox 96 O2 Delivery Room Air Capillary Refill : Height: 5'5.00" Weight: 159lbs. 0.0oz. 72.908262wg; 26.5 BMI Method: General Appearance: WD/WN, no apparent distress Neck: full range of motion, supple Respiratory: lungs clear, normal breath sounds Cardiovascular: normal peripheral pulses, regular rate, rhythm, no edema Gastrointestinal: non tender, soft Neurologic/Psychiatric: alert, normal mood/affect, oriented x 3 Skin: normal color, warm/dry Progress/Results/Core Measures Suspected Sepsis SIRS Temperature: Pulse: Respiratory Rate: Blood Pressure / Mean: Results/Orders Lab Results Laboratory Tests Test 12/31/22 11:30 Range/Units Influenza Type A (RT-PCR) Not Detected Not Detecte Influenza Type B (RT-PCR) Not Detected Not Detecte SARS-CoV-2 RNA (RT-PCR) Not Detected Not Detecte My Orders Orders - ABRIL WHITEHEAD DO Chest Pa/Lat (2 View) (12/31/22 11:25) Influenza A And B By Pcr (12/31/22 11:25) Covid 19 Inhouse Test (12/31/22 11:25) Vital Signs/I&O 12/31/22 12/31/22 11:24 12:25 Temp 36.3 36.3 Pulse 78 78 Resp 16 16 B/P (MAP) 125/65 (85) 125/65 Pulse Ox 96 96 O2 Delivery Room Air Room Air Capillary Refill : Progress Note : Progress Note Patient's diagnostic studies were ordered reviewed and interpreted by me. Patient's x-ray was ordered and reviewed by me with initial interpretation by me with final interpretation per radiology report. Patient with no acute pneumonia or findings on her x-ray. Patient's symptoms are consistent with a viral bronchitis. Patient will be prescribed Tessalon Perles to help with her cough so that she can sleep. Patient should follow-up with her primary care provider if symptoms or not improving over the next 5 to 7 days. She is stable and discharged home. Diagnostic Imaging Diagonstic Imaging: Xray Plain Films/CT/US/NM/MRI: chest Comments Date of Exam:12/31/22 CHEST PA/LAT (2 VIEW) Indication: Cough PA and lateral views of the chest are obtained. COMPARISON: No previous study is available for comparison at this time. FINDINGS: Heart size and pulmonary vasculature are within normal limits, and the lungs are clear, bilaterally. IMPRESSION: Unremarkable chest. Reviewed: Reviewed by Me, Reviewed/Discussed Departure Impression Primary Impression: Bronchitis Disposition: HOME, SELF-CARE Condition: Stable Departure-Patient Inst. Referrals: DAVID GARCIA DO (PCP/Family) Primary Care Physician Patient Instructions: Viral Upper Respiratory Infection, Adult (DC), Bronchitis, Adult ED Add. Discharge Instructions: Please follow-up with your primary care provider in 1 week if symptoms or not improving or if they become worse All discharge instructions reviewed with patient and/or family. Voiced understanding. Scripts Benzonatate (TESSALON PERLES) 100 Mg Capsule 100 MG PO TID for Cough, #20 CAP Prov: ABRIL WHITEHEAD DO 12/31/22 ABRIL WHITEHEAD DO Dec 31, 2022 11:25
--- NOTE | 2022-12-31 11:45 | Diagnostic Imaging Report ---
Indication: Cough PA and lateral views of the chest are obtained. COMPARISON: No previous study is available for comparison at this time. FINDINGS: Heart size and pulmonary vasculature are within normal limits, and the lungs are clear, bilaterally. IMPRESSION: Unremarkable chest. Dictated by: Dictated on workstation # [id number]
[2022-12-31] MEDS ORDERED: BENZ100C18 PO (11:53)
[2022-12-31 12:25] VITALS: BP 125/65
== END 2022-12-31 12:26 | disposition home or self-care (01) ==
LOC: EDUNIT# 11:16 → ER FS 11:18
DX: J40 Bronchitis, not specified as acute or chronic (principal); Z20.822 Contact with and (suspected) exposure to COVID-19
CPT/HCPCS: 71046; 87636

== ENCOUNTER 2023-08-28 18:12 | Emergency (ER) | payer MEDICARE, OTHER ==
[~2023-08-28] VITALS: Ht 165 cm; Wt 64.0 kg
[~2023-08-28 18:12] MED LIST changes: +BENZ100C18 PO
--- NOTE | 2023-08-28 18:28 | ED GI ---
General Chief Complaint: Abdominal/GI Problems Stated Complaint: N/V History of Present Illness Date Seen by Provider: Aug 28, 2023 Time Seen by Provider: 18:25 Initial Comments 78-year-old female presents with generalized body aches, nausea, vomiting, cough, fatigue has been going on for couple days. Patient's reports he started feel little rough also. Patient denies any significant shortness of breath, she does have a mild headache. Allergies and Home Medications Allergies Coded Allergies: Sulfa (Sulfonamide Antibiotics) (Verified Allergy, Unknown, CHILDHOOD ALLERGY, 01/02/19) Patient Home Medication List Home Medication List Reviewed: Yes Aspirin (Aspir 81) 81 Mg Tablet.dr, 81 MG PO DAILY, (Reported) Entered as Reported by: DIANA WHITTEN on 01/02/19 1014 Atorvastatin Calcium (Atorvastatin Calcium) 20 Mg Tablet, 20 MG PO HS, (Reported) Entered as Reported by: DIANA WHITTEN on 01/02/19 1018 Benzonatate (Tessalon Perles) 100 Mg Capsule, 100 MG PO TID Prescribed by: ABRIL WHITEHEAD on 12/31/22 1153 Carvedilol (Carvedilol) 12.5 Mg Tablet, 50 MG PO HS, (Reported) Entered as Reported by: DIANA WHITTEN on 01/02/19 1018 Hydrochlorothiazide (Hydrochlorothiazide) 12.5 Mg Tablet, 12.5 MG PO DAILY, (Reported) Entered as Reported by: DIANA WHITTEN on 01/02/19 1018 Lactobacillus Acidophilus (Probiotic) 1 Each Capsule, 1 EACH PO HS, (Reported) Entered as Reported by: DIANA WHITTEN on 01/02/19 1024 Levothyroxine Sodium (Levothyroxine Sodium) 100 Mcg Tablet, 100 MCG PO DAILY, (Reported) Entered as Reported by: DIANA WHITTEN on 01/02/19 1018 Magnesium Oxide (Magnesium) 400 Mg Tablet, 400 MG PO DAILY, (Reported) Entered as Reported by: DIANA WHITTEN on 01/02/19 1024 Metformin HCl (Metformin HCl) 1,000 Mg Tablet, 1,000 MG PO DAILY, (Reported) Entered as Reported by: DIANA WHITTEN on 01/02/19 1018 Montelukast Sodium (Montelukast Sodium) 10 Mg Tablet, 10 MG PO DAILY, (Reported) Entered as Reported by: DIANA WHITTEN on 01/02/19 1020 Ondansetron (Ondansetron Odt) 4 Mg Tab.rapdis, 4 MG PO Q6H PRN for NAUSEA/VOMITING Prescribed by: ABRIL WHITEHEAD on 08/28/23 1937 Oxybutynin Chloride (Oxybutynin Chloride ER) 5 Mg Tab.er.24, 5 MG PO DAILY, (Reported) Entered as Reported by: DIANA WHITTEN on 01/02/19 1018 Venlafaxine HCl (Effexor Xr) 75 Mg Cap.er.24h, 75 MG PO DAILY, (Reported) Entered as Reported by: DIANA WHITTEN on 01/02/19 1018 [Steroid Patch] , 0.1 MG TOP MONTHLY, (Reported) Entered as Reported by: DIANA WHITTEN on 01/02/19 1018 Review of Systems Review of Systems Constitutional: chills, fever, malaise EENTM: Nose Congestion, Throat Pain Respiratory: Cough; Denies Shortness of Air Gastrointestinal: Denies Abdominal Pain; Nausea, Vomiting Musculoskeletal: see HPI Skin: no symptoms reported Psychiatric/Neurological: No Symptoms Reported Past Pkngtlx-Xfwhjn-Ebvryp Hx Seasonal Allergies Seasonal Allergies: Yes Past Medical History Surgeries: Yes (FOOT, ) Hysterectomy, Oophorectomy, Tonsillectomy Respiratory: No Cardiac: Yes High Cholesterol, Hypertension, Irregular Heartbeat, Palpitations Neurological: No (LUPUS, HX LYME DISEASE, HX CHRONIC FATIGUE) Sexually Transmitted Disease: No HIV/AIDS: No Genitourinary: No Gastrointestinal: Yes Chronic Constipation Musculoskeletal: Yes (BULGING DISC) Arthritis, Chronic Back Pain Endocrine: Yes (PRE-DIABETIC) Hypothyroidsim, Diabetes, Non-Insulin dep HEENT: No Loss of Vision: Denies Hearing Impairment: Denies Cancer: No Psychosocial: Yes Depression Integumentary: No Blood Disorders: No (HX ANEMIA) Adverse Reaction/Blood Tranf: No (N/A) Physical Exam Vital Signs Vital Signs - First Documented 08/28/23 18:29 Temp 37.2 Pulse 75 Resp 16 B/P (MAP) 151/92 (111) Pulse Ox 100 O2 Delivery Room Air Capillary Refill : Height/Weight/BMI Height: 5'5.00" Weight: 159lbs. 0.0oz. 72.777410qf; 22.00 BMI Method: General Appearance: other (Not feeling well) HEENT: PERRL/EOMI Respiratory: lungs clear, normal breath sounds Cardiovascular: normal peripheral pulses, regular rate, rhythm Gastrointestinal: non tender, soft Extremities: normal range of motion Neurologic/Psychiatric: alert, normal mood/affect, oriented x 3 Skin: normal color, warm/dry Progress/Results/Core Measures Results/Orders Lab Results Laboratory Tests Test 08/28/23 18:20 08/28/23 18:30 08/28/23 18:34 Range/Units Urine Color YELLOW Urine Clarity CLEAR Urine pH 6.0 5-9 Urine Specific [place] >=1.030 1.016-1.022 Urine Protein 1+ H NEGATIVE Urine Glucose (UA) TRACE H NEGATIVE Urine Ketones 2+ H NEGATIVE Urine Nitrite NEGATIVE NEGATIVE Urine Bilirubin NEGATIVE NEGATIVE Urine Urobilinogen 0.2 < = 1.0 MG/DL Urine Leukocyte Esterase NEGATIVE NEGATIVE Urine RBC (Auto) TRACE-I H NEGATIVE Urine RBC NONE /HPF Urine WBC NONE /HPF Urine Squamous Epithelial Cells NONE /HPF Urine Crystals PRESENT H /LPF Urine Calcium Oxalate Crystals LARGE H /LPF Urine Bacteria TRACE /HPF Urine Casts NONE /LPF Urine Mucus MODERATE H /LPF Urine Culture Indicated NO Influenza Type A (RT-PCR) Not Detected Not Detecte Influenza Type B (RT-PCR) Not Detected Not Detecte SARS-CoV-2 RNA (RT-PCR) Not Detected Not Detecte White Blood Count 8.2 4.3-11.0 10^3/uL Red Blood Count 4.49 3.80-5.11 10^6/uL Hemoglobin 13.5 11.5-16.0 g/dL Hematocrit 41 35-52 % Mean Corpuscular Volume 92 80-99 fL Mean Corpuscular Hemoglobin 30 25-34 pg Mean Corpuscular Hemoglobin Concent 33 32-36 g/dL Red Cell Distribution Width 12.8 10.0-14.5 % Platelet Count 320 130-400 10^3/uL Mean Platelet Volume 9.0 9.0-12.2 fL Immature Granulocyte % (Auto) 0 % Neutrophils (%) (Auto) 71 42-75 % Lymphocytes (%) (Auto) 14 12-44 % Monocytes (%) (Auto) 12 0-12 % Eosinophils (%) (Auto) 2 0-10 % Basophils (%) (Auto) 1 0-10 % Neutrophils # (Auto) 5.8 1.8-7.8 10^3/uL Lymphocytes # (Auto) 1.1 1.0-4.0 10^3/uL Monocytes # (Auto) 1.0 0.0-1.0 10^3/uL Eosinophils # (Auto) 0.2 0.0-0.3 10^3/uL Basophils # (Auto) 0.1 0.0-0.1 10^3/uL Immature Granulocyte # (Auto) 0.0 0.0-0.1 10^3/uL Sodium Level 139 135-145 MMOL/L Potassium Level 3.7 3.6-5.0 MMOL/L Chloride Level 102 98-107 MMOL/L Carbon Dioxide Level 27 21-32 MMOL/L Anion Gap 10 5-14 MMOL/L Blood Urea Nitrogen 13 7-18 MG/DL Creatinine 0.73 0.60-1.30 MG/DL Estimat Glomerular Filtration Rate 85 BUN/Creatinine Ratio 18 Glucose Level 115 H 70-105 MG/DL Calcium Level 9.6 8.5-10.1 MG/DL Corrected Calcium 9.8 8.5-10.1 MG/DL Total Bilirubin 0.4 0.1-1.0 MG/DL Aspartate Amino Transf (AST/SGOT) 19 5-34 U/L Alanine Aminotransferase (ALT/SGPT) 20 0-55 U/L Alkaline Phosphatase 100 40-136 U/L Total Protein 7.7 6.4-8.2 GM/DL Albumin 3.7 3.2-4.5 GM/DL My Orders Orders - WHITEHEAD,ABRIL L DO Cbc And Automated Diff (08/28/23 18:29) Comprehensive Metabolic Panel (08/28/23 18:29) Ua Culture If Indicated (08/28/23 18:29) Influenza A And B By Pcr (08/28/23 18:29) Covid 19 Inhouse Test (08/28/23 18:29) Ondansetron Injection (Ondansetron Inj (08/28/23 18:30) Ns Iv 1000 Ml (Ns Iv 1000 Ml) (08/28/23 18:29) Chest Pa/Lat (2 View) (08/28/23 18:29) Medications Given in ED Current Medications Medications Dose Ordered Sig/Milad Route Start Time Stop Time Status Last Admin Dose Admin Ondansetron HCl 4 mg ONCE ONCE IVP 08/28/23 18:30 08/28/23 18:31 DC 08/28/23 18:44 4 MG Vital Signs/I&O 08/28/23 08/28/23 18:29 19:31 Temp 37.2 Pulse 75 72 Resp 16 16 B/P (MAP) 151/92 (111) 142/86 Pulse Ox 100 100 O2 Delivery Room Air Room Air Progress Progress Note : Progress Note Patient's diagnostic studies were ordered reviewed and interpreted by me. Patient had no significant findings on her labs. Patient with a viral syndrome. She was feeling little bit better following some IV fluids and Zofran. Patient to be prescribed Zofran for any nausea vomiting. I did discuss supportive care with her. She should follow-up with her primary care provider next week if symptoms are not improving over the next week or so or if they suddenly worsen. Return to the ER with any significant increasing shortness of breath or low oxygen. She is stable and discharged home. Diagnostic Imaging Diagonstic Imaging: Xray Plain Films/CT/US/NM/MRI: chest Comments Date of Exam:08/28/23 CHEST PA/LAT (2 VIEW) INDICATION: Cough. COMPARISON: 12/28/2022. FINDINGS: PA and lateral films of the chest show normal heart, pulmonary vasculature, pleura and diaphragms with no focal opacity. Soft tissues and bony thorax are normal. IMPRESSION: No acute cardiopulmonary changes. Departure Impression Primary Impression: Bronchitis Disposition: 01 HOME, SELF-CARE Condition: Stable Departure-Patient Inst. Referrals: DAVID GARCIA DO (PCP/Family) Primary Care Physician Patient Instructions: VIRAL RESP ILLNESS-ADULT Scripts Ondansetron (Ondansetron Odt) 4 Mg Tab.rapdis 4 MG PO Q6H PRN for NAUSEA/VOMITING, #30 TAB 0 Refills . Prov: ABRIL WHITEHEAD DO 08/28/23 ABRIL WHITEHEAD DO Aug 28, 2023 18:28
[2023-08-28] MEDS ORDERED: NS IV 1000 ML 1,000 ML IV STA (18:29)
[2023-08-28] MEDS ORDERED: ONDANSETRON INJECTION 4 MG/2 ML (SDV) IVP ONE (18:30)
[2023-08-28 18:37] LABS: BILIRUBIN,URINE NEGATIVE (NEGATIVE); CLARITY,URINE CLEAR; COLOR,URINE YELLOW; GLUCOSE, URINE (UA) TRACE (NEGATIVE); KETONES,URINE 2+ (NEGATIVE); LEUKOCYTE ESTERASE ,URINE NEGATIVE (NEGATIVE); NITRITE,URINE NEGATIVE (NEGATIVE); PROTEIN,URINE 1+ (NEGATIVE)
[2023-08-28 18:38] LABS: BACTERIA,URINE TRACE /HPF; CALCIUM OXALATE CRYSTALS,UR LARGE /LPF
[2023-08-28 18:40] LABS: BASOPHILS # (AUTO) 0.1 10^3/uL (0.0-0.1); BASOPHILS % (AUTO) 1 % (0-10); EOSINOPHILS # (AUTO) 0.2 10^3/uL (0.0-0.3); EOSINOPHILS % (AUTO) 2 % (0-10); HEMATOCRIT 41 % (35-52); HEMOGLOBIN 13.5 g/dL (11.5-16.0); LYMPHOCYTES # (AUTO) 1.1 10^3/uL (1.0-4.0); LYMPHOCYTES % (AUTO) 14 % (12-44); MEAN CORPUSCULAR HEMOGLOBIN 30 pg (25-34); MEAN CORPUSCULAR HGB CONC 33 g/dL (32-36); MEAN CORPUSCULAR VOLUME 92 fL (80-99); MONOCYTES % (AUTO) 12 % (0-12); NEUTROPHILS # (AUTO) 5.8 10^3/uL (1.8-7.8); NEUTROPHILS % (AUTO) 71 % (42-75); PLATELET COUNT 320 10^3/uL (130-400); WHITE BLOOD COUNT 8.2 10^3/uL (4.3-11.0)
[2023-08-28 18:50] LABS: BILIRUBIN,TOTAL 0.4 MG/DL (0.1-1.0); CALCIUM 9.6 MG/DL (8.5-10.1); POTASSIUM 3.7 MMOL/L (3.6-5.0)
[2023-08-28 18:55] LABS: TOTAL PROTEIN 7.7 GM/DL (6.4-8.2)
[2023-08-28 18:56] LABS: ALBUMIN 3.7 GM/DL (3.2-4.5); CREATININE SERUM 0.73 MG/DL (0.60-1.30)
--- NOTE | 2023-08-28 19:07 | Diagnostic Imaging Report ---
INDICATION: Cough. COMPARISON: 12/28/2022. FINDINGS: PA and lateral films of the chest show normal heart, pulmonary vasculature, pleura and diaphragms with no focal opacity. Soft tissues and bony thorax are normal. IMPRESSION: No acute cardiopulmonary changes. Dictated by: Dictated on workstation # [id number]
[2023-08-28] MEDS ORDERED: ONDA4TAB11 PO ×2 (19:28→19:37)
[2023-08-28 19:31] VITALS: BP 142/86
== END 2023-08-28 19:32 | disposition home or self-care (01) ==
LOC: EDUNIT# 18:12 → ER FS 18:13
DX: J40 Bronchitis, not specified as acute or chronic (principal); R11.2 Nausea with vomiting, unspecified
CPT/HCPCS: 36415; 71046; 80053; 81000; 85025; 87636; 96374